=== PATIENT | male | born 1985 | race Caucasian/White ===

== ENCOUNTER 2020-11-29 17:52 | Emergency (ER) | payer OTHER ==
[~2020-11-29 17:52] MED LIST: FLEXERIL 10 MG10 MG PO
[2020-11-29 19:56] LABS: HEMOGLOBIN 17.2 gm/dl (14.0-17.5); RED BLOOD COUNT 5.39 M/UL (4.20-5.50); WHITE BLOOD COUNT 8.9 K/UL (4.5-11.0)
[2020-11-29 20:00] LABS: BUN/CREATININE RATIO 6 (0-10)
[2020-11-29] MEDS ORDERED: CEPHALEXIN500 MG PO (20:46)
[2020-11-29] MEDS ORDERED: LODINE CAP 300300 MG PO (20:46)
[2020-11-29] MEDS ORDERED: BACTRIM DS TAB1 EACH PO (20:46)
== END 2020-11-29 21:20 | disposition home or self-care (01) ==
LOC: ER1 17:52
PROVIDERS: Physician Assistant
DX: L03.011 Cellulitis of right finger (principal); F17.210 Nicotine dependence, cigarettes, uncomplicated; Z23 Encounter for immunization
CPT/HCPCS: 73201; 80053; 83605; 85025; 85652; 86140; 87040; 90471; 90715; 99284; Q9967